=== PATIENT | female | born 1940 | race African-American/Black ===

== ENCOUNTER → 2017-03-24 | Outpatient (CLI) | payer MEDICARE ==
[~2017-03-24] MED LIST: ASPIRIN81 M2 PO; ATENOLOL50 MG PO; IRON45 MG; LEVEMIR100 UNITS/ SUBQ; LIPITOR40 MG PO; LISINOPRIL20 MG PO; NEURONTIN100 MG PO; NEXIUM PO; NOVOLOG MI100 UNIT/1 SUBQ; OMEPRAZOLE20 M1 PO
[2017-03-24 09:05] LABS: HEMATOCRIT 39.3 % (35.0-45.0); HEMOGLOBIN 12.6 gm/dL (12.0-16.0); MEAN CELL VOLUME 88.8 FL (83-96); MEAN CORPUSCULAR HEMOGLOBIN 28.6 PG (28-34); MEAN CORPUSCULAR HGB CONC 32.2 g/dL (30-36); MEAN PLATELET VOLUME 11.6 FL (6.5-11.5); RED BLOOD COUNT 4.42 X10e (3.90-5.30); RED CELL DISTRIBUTION WIDTH 13.5 % (11.0-15.5); WHITE BLOOD COUNT 6.8 X10e3 (4.0-10.5)
[2017-03-24 09:06] LABS: URINE APPEARANCE CLOUDY; URINE BILIRUBIN NEG (NEG); URINE BLOOD NEG (NEG); URINE COLOR YELLOW; URINE GLUCOSE NEG (NEG); URINE KETONE NEG (NEG); URINE LEUKOCYTE ESTERASE 2+ (NEG); URINE NITRATE NEG (NEG); URINE PH 5.5 (5-8); URINE PROTEIN TRACE (NEG); URINE SPECIFIC GRAVITY 1.019 (1.003-1.035)
[2017-03-24 09:08] LABS: URBCS1 AUWI 0-2 /[HPF] (0-2); URINE BACTERIA AUWI 4+ (NEGATIVE); URINE SQUAMOUS EPITHELIAL CELL NONE SEEN /[HPF]; UWBCS1 AUWI 50-100 (0-5)
[2017-03-24 09:14] LABS: URINE SOURCE CLEAN CATCH
[2017-03-24 09:37] LABS: CREATININE,RANDOM URINE 149 mg/dL; TOTAL PROTEIN,RANDOM URINE 29 mg/dl (<10)
[2017-03-24 10:25] LABS: CALCIUM SERUM 9.9 mg/dL (8.4-10.2); GLOM FILT RATE Estimated 63.4 mL/min (>60); POTASSIUM 4.4 mmol/L (3.5-5.1)
== END | disposition home or self-care (01) ==
LOC: CLAB 08:33
PROVIDERS: Internal Medicine Nephrology
DX: N18.3 Chronic kidney disease, stage 3 (moderate) (principal)
CPT/HCPCS: 36415; 80048; 81003; 82570; 84156; 85027

== ENCOUNTER → 2017-06-23 | Outpatient (CLI) | payer MEDICARE ==
[2017-06-23 13:04] LABS: URINE APPEARANCE CLOUDY; URINE BILIRUBIN NEG (NEG); URINE BLOOD TRACE (NEG); URINE COLOR YELLOW; URINE GLUCOSE NEG (NEG); URINE KETONE NEG (NEG); URINE LEUKOCYTE ESTERASE 2+ (NEG); URINE NITRATE POS (NEG); URINE PH 5.5 (5-8); URINE PROTEIN 2+ (NEG); URINE SPECIFIC GRAVITY 1.019 (1.003-1.035); URINE UROBILINOGEN 0.2 MG/DL (NEG)
[2017-06-23 13:05] LABS: BASOPHIL% 0.7 % (0-2.5); DIFF IND NO; EOSINOPHIL% 0.2 % (0.0-7.0); HEMATOCRIT 35.4 % (35.0-45.0); HEMOGLOBIN 11.6 gm/dL (12.0-16.0); LYMPHOCYTE# 1.9 X10e3 (1.0-3.5); LYMPHOCYTE% 42.3 % (17.0-45.0); MEAN CELL VOLUME 86.9 FL (83-96); MEAN CORPUSCULAR HEMOGLOBIN 28.6 PG (28-34); MEAN CORPUSCULAR HGB CONC 32.9 g/dL (30-36); MEAN PLATELET VOLUME 12.1 FL (6.5-11.5); MONOCYTE# 0.9 X10e3 (0-1.0); NEUTROPHIL# 1.7 X10e3 (1.5-7.1); NEUTROPHIL% 36.8 % (40-75); PLATELET COUNT 101 X10e3 (140-420); RED BLOOD COUNT 4.07 X10e (3.90-5.30); WHITE BLOOD COUNT 4.6 X10e3 (4.0-10.5)
[2017-06-23 13:06] LABS: URINE BACTERIA AUWI 4+ (NEGATIVE); URINE SQUAMOUS EPITHELIAL CELL NONE SEEN /[HPF]; UWBCS1 AUWI 100-200 (0-5)
[2017-06-23 13:24] LABS: CREATININE,RANDOM URINE 142 mg/dL; TOTAL PROTEIN,RANDOM URINE 52 mg/dl (<10)
[2017-06-23 13:37] LABS: BUN/CREATININE RATIO 27.69; CALCIUM SERUM 9.8 mg/dL (8.4-10.2); CREATININE SERUM 1.3 mg/dL (0.6-1.4); GLOM FILT RATE Estimated 46.2 mL/min (>60)
== END | disposition home or self-care (01) ==
LOC: CLAB 12:19
PROVIDERS: Internal Medicine Nephrology
DX: I12.9 Hypertensive chronic kidney disease with stage 1 through stage 4 chronic kidney disease, or unspecified chronic kidney disease (principal); N18.3 Chronic kidney disease, stage 3 (moderate)
CPT/HCPCS: 36415; 80048; 81003; 82570; 82728; 83036; 83540; 83550; 84156; 85025

== ENCOUNTER 2017-07-23 07:50 | Emergency (ER) | payer MEDICARE ==
[~2017-07-23] VITALS: Ht 160 cm; Wt 73.5 kg
--- NOTE | ~2017-07-23 | CT4 ---
[facility] A Service of [facility] & [facility] RADIOLOGY TEXT RESULTS PATIENT: DONALDO SIM LOCATION: [facility] : 41 UNIT #: [id number] AGE: [address]: Avinash Wagoner SEX: F ORDER DR: [id number] [facility] [address] [place], [place] [address] [id number] E MR#: [id number] #: [id number] NAME: DONALDO SIM : 1940 SEX: F STUDY DATE/TIME: 07/23/2017 09:47 UNIT: [facility] ROOM: STUDY DESCRIPTION: CT Abd and Pelv Wo Cont Attending Physician: Avinash Wagoner R.N. Ordering Physician: Avinash Wagoner R.N. Primary Care Physician: Margarita Rosenberg M.D. MEDICAL IMAGING REPORT This report is preliminary unless electronic signature is present EXAM CT abdomen and pelvis without contrast, 07/23/2017 09:47 hours HISTORY Generalized body pain, body aches for 3 days, pain with respiration, headache and weakness. History of ovarian tumors, hypertension, diabetes. COMPARISON CT abdomen, 05/03/2016 TECHNIQUE Helical noncontrasted images were obtained from the lung bases through the pubic symphysis without oral or intravenous contrast. Sagittal and coronal reconstructions were performed. Total exam DLP 606 mGy-cm. This CT exam was performed with one or more of the following radiation dose reduction techniques: automatic exposure control, adjustment of mA and/or kV according to patient size, and iterative reconstruction. FINDINGS Images through the lung bases demonstrate a moderately large hiatal hernia with stable linear density at both lung bases and mild traction bronchiectasis at the right base. There is no effusion. Noncontrasted images through the abdomen demonstrate a normal appearance to the liver, spleen, pancreas and gallbladder. The adrenal glands are normal. The kidneys demonstrate cortical lucencies bilaterally which are likely cysts. 1 of these is hyperdense in the posterior upper pole right kidney representing no change from prior exam. There are no stones in the kidneys or ureters. There is no renal obstruction seen. The bladder is normal. [facility] A Service of [facility] & [facility] RADIOLOGY TEXT RESULTS PATIENT: DONALDO SIM [id number] 42 UNIT #: [id number] AGE: [address]: Avinash Wagoner SEX: F ORDER DR: The stomach is contracted. Other than the large hiatal hernia it is normal. The small bowel is unremarkable. The terminal ileum and appendix are normal. The colon demonstrates colonic diverticula beginning in the distal descending colon with numerous diverticula in the sigmoid colon but no definite wall thickening or inflammation. CT pelvis demonstrates no significant change. Question prior hysterectomy with prominent residual cervix versus adnexal soft tissue. This could represent an atrophic slightly retroverted uterus. The contours however are similar to 05/03/2016. There is no free fluid seen. IMPRESSION 1. No definite acute findings in the abdomen or pelvis. There are multiple diverticula in the sigmoid colon without CT evidence of diverticulitis. No renal or ureteral calculi. 2. CT pelvis is not appreciably changed from 05/03/2016. There is a soft tissue density which could represent a small retroverted uterus versus prominent residual cervix. There is no adnexal mass or pelvic free fluid. No change from 05/03/2016. Dictated by... Danielle Jo M.D. THIS IS AN ELECTRONICALLY VERIFIED REPORT Danielle Jo M.D. at 07/23/2017 2:31 PM Shazia TD: 07/23/2017 10:59 JOB #: [id number] MEDICAL IMAGING REPORT Page 1 of 1 COPY
--- NOTE | ~2017-07-23 | CT71 ---
[facility] A Service of [facility] RADIOLOGY TEXT RESULTS PATIENT: DONALDO SIM LOCATION: [facility] : 41 UNIT #: [id number] AGE: [address]: Avinash Wagoner SEX: F ORDER DR: [id number] [place] [id number] [facility]. [place], [place] [address] [id number] E MR#: [id number] Acc #: [id number] NAME: DONALDO SIM : 1940 SEX: F STUDY DATE/TIME: 07/23/2017 9:36 UNIT: [facility] ROOM: STUDY DESCRIPTION: CT Head Wo Contrast Attending Physician: Avinash Wagoner R.N. Ordering Physician: Avinash Wagoner R.N. Primary Care Physician: Margarita Rosenberg M.D. MEDICAL IMAGING REPORT This report is preliminary unless electronic signature is present EXAM Head CT no contrast, 07/23/2017 INDICATIONS A 77-year-old female with body aches for 3 days, hurts to breathe. Weakness. Generalized headaches. Hypertension. Migraine headaches. Diabetes. TECHNIQUE Noncontrast CT brain was performed compared with 06/04/2013. This CT exam was performed with one or more of the following radiation dose reduction techniques: automatic exposure control, adjustment of mA and/or kV according to patient size, and iterative reconstruction. FINDINGS CT brain and sulci and ventricles unremarkable. No midline shift. No evidence of acute intracranial hemorrhage. There is no mass, mass effect or edema to suggest acute infarct and no extraaxial fluid collections are present. The globes are intact. The bones are intact and the sinuses are clear. There is mild generalized atrophy similar to the prior study. IMPRESSION Generalized atrophy but no clearly acute intracranial process. No evidence of acute intracranial hemorrhage or significant change. Dictated by... Dmitry Wagner M.D. THIS IS AN ELECTRONICALLY VERIFIED REPORT [facility] A Service [facility] RADIOLOGY TEXT RESULTS PATIENT: DONALDO SIM LOCATION: [facility] : 42 UNIT #: [id number] AGE: [address]: Avinash Wagoner SEX: F ORDER DR: Dmitry Wagner M.D. at 07/23/2017 2:11 PM WENDI/hero TD: 07/23/2017 11:51 JOB #: [id number] MEDICAL IMAGING REPORT Page 1 of 1 COPY
--- NOTE | ~2017-07-23 | EKG ---
PATIENT: DONALDO SIM UNIT #: [id number] Ventricular Rate: 82 BPM Atrial Rate: 82 BPM P-R Interval: 174 ms QRS Duration: 76 ms Q-T Interval: 378 ms QTC Calculation(Bezet): 441 ms P [place]: 43 degrees Calculated R [place]: -9 degrees Calculated T [place]: 80 degrees Diagnosis Line: Normal sinus rhythm Diagnosis Line: Minimal voltage criteria for LVH, may be normal Diagnosis Line: variant Diagnosis Line: Nonspecific T wave abnormality Diagnosis Line: Abnormal ECG Diagnosis Line: When compared with ECG of 25-DEC-2016 07:49, Diagnosis Line: Nonspecific T wave abnormality, worse in Inferior Diagnosis Line: leads Diagnosis Line: Confirmed by MO SANCHEZ MD ([id number]) on 07/23/2017 Diagnosis Line: 7:23:51 PM INTERPRETING MD: LAURA VAUGHN
[~2017-07-23 07:50] MED LIST changes: -IRON45 MG
[2017-07-23 08:28] LABS: BASOPHIL% 0.4 % (0-2.5); EOSINOPHIL% 0.2 % (0.0-7.0); HEMATOCRIT 39.1 % (35.0-45.0); HEMOGLOBIN 12.9 gm/dL (12.0-16.0); LYMPHOCYTE# 2.5 X10e3 (1.0-3.5); LYMPHOCYTE% 22.6 % (17.0-45.0); MEAN CELL VOLUME 86.8 FL (83-96); MEAN CORPUSCULAR HEMOGLOBIN 28.5 PG (28-34); MEAN CORPUSCULAR HGB CONC 32.9 g/dL (30-36); MEAN PLATELET VOLUME 10.8 FL (6.5-11.5); MONOCYTE# 3.3 X10e3 (0-1.0); MONOCYTE% 29.6 % (3.0-12.0); NEUTROPHIL# 5.2 X10e3 (1.5-7.1); NEUTROPHIL% 47.2 % (40-75); PLATELET COUNT 121 X10e3 (140-420); RED BLOOD COUNT 4.51 X10e (3.90-5.30); WHITE BLOOD COUNT 11.1 X10e3 (4.0-10.5)
[2017-07-23 08:29] LABS: DIFF IND YES
[2017-07-23 08:37] LABS: POC - CKMB 1.1 ng/mL (0.0-7.9); POC - TROPONIN <0.05 ng/mL (<=0.05)
[2017-07-23 08:46] LABS: ALBUMIN SERUM 4.2 g/dL (3.5-5.0); BILIRUBIN, DIRECT 0.1 mg/dL (0.0-0.2); BILIRUBIN,INDIRECT 0.7 mg/dL (0.0-0.9); BILIRUBIN,TOTAL 0.8 mg/dL (0.2-2.0); CALCIUM SERUM 9.3 mg/dL (8.4-10.2); GLOM FILT RATE Estimated 63.4 mL/min (>60); POTASSIUM 3.3 mmol/L (3.5-5.1); PROTEIN TOTAL SERUM 7.7 g/dL (6.0-8.3)
[2017-07-23 08:51] LABS: URINE SOURCE CLEAN CATCH
[2017-07-23 09:02] LABS: URINE APPEARANCE CLOUDY; URINE BILIRUBIN NEG (NEG); URINE BLOOD NEG (NEG); URINE COLOR YELLOW; URINE GLUCOSE NEG (NEG); URINE KETONE NEG (NEG); URINE LEUKOCYTE ESTERASE 2+ (NEG); URINE NITRATE NEG (NEG); URINE PROTEIN 1+ (NEG); URINE SPECIFIC GRAVITY 1.017 (1.003-1.035); URINE UROBILINOGEN 0.2 MG/DL (NEG)
[2017-07-23 09:04] LABS: CULTURE INDICATED? YES; URBCS1 AUWI 0-2 /[HPF] (0-2); URINE BACTERIA AUWI 4+ (NEGATIVE); URINE SQUAMOUS EPITHELIAL CELL NONE SEEN /[HPF]; UWBCS1 AUWI 50-100 (0-5)
[2017-07-23 09:19] LABS: PLATELET ESTIMATE NORMAL (NORMAL)
[2017-08-14] MEDS ORDERED: IRON45 MG (10:32)
== END 2017-07-23 11:45 | disposition home or self-care (01) ==
LOC: CED 07:50
PROVIDERS: Nurse Practitioner
DX: N39.0 Urinary tract infection, site not specified (principal); E11.9 Type 2 diabetes mellitus without complications; E78.5 Hyperlipidemia, unspecified; I10 Essential (primary) hypertension; G43.909 Migraine, unspecified, not intractable, without status migrainosus; Z88.1 Allergy status to other antibiotic agents; Z88.8 Allergy status to other drugs, medicaments and biological substances
CPT/HCPCS: 36415; 70450; 74176; 80048; 80076; 81003; 82553; 82947; 84484; 85025; 87086; 87088; 87186; 93005; 96361; 96365; 99284; J0696